=== PATIENT | male | born 1985 | race Caucasian/White ===

== ENCOUNTER 2019-05-13 16:22 | Emergency (ER) | payer MEDICAID ==
[~2019-05-13] VITALS: Ht 160 cm; Wt 77.1 kg
[2019-05-13 16:29] VITALS: BP_SYST 143
--- NOTE | 2019-05-13 21:06 | NUR ---
Patient to ER bed h1 to gown for evaluation. Side rails up.
--- NOTE | 2019-05-13 21:30 | NUR ---
Pt came to the ED for HX of 8 bilateral hand pain with numbnes and weakness. Reports he was handcuffed by police yesterday and it was "too tight and it felt like it was burning." Denies n/v/d or fever. No other complaints/injuries noted. Will cont. to monitor.
--- NOTE | 2019-05-13 22:30 | NUR ---
ER at bedside examining patient.
[2019-05-13 23:47] VITALS: BP_SYST 143
--- NOTE | 2019-05-13 23:47 | NUR ---
Patient given written and verbal discharge instructions and verbalizes understanding. ER MD Dr. Dejesus discussed with patient the results and treatment provided. Patient in stable condition. ID arm band removed. Rx of ibuprofen given. Patient educated on pain management and to follow up with PMD. Pain Scale 0/10. Opportunity for questions provided and answered. Medication side effect fact sheet provided.
== END 2019-05-13 23:47 | disposition home or self-care (01) ==
LOC: SED 16:22
DX: M25.531 Pain in right wrist (principal); M25.532 Pain in left wrist; R20.2 Paresthesia of skin
CPT/HCPCS: 99283

== ENCOUNTER 2023-10-30 12:43 | Emergency (ER) | payer MEDICAID ==
[~2023-10-30] VITALS: Ht 160 cm; Wt 81.6 kg
[2023-10-30 12:50] VITALS: BP_SYST 168; PULSE 69; RESP 18; TEMP 97.3; O2SAT 98
[2023-10-30 13:17] LABS: BILIRUBIN,URINE NEGATIVE (NEGATIVE); BLOOD, URINE NEGATIVE (NEGATIVE); CLARITY/URINE CLEAR (CLEAR); COLOR,URINE YELLOW (YELLOW); GLUCOSE,URINE NEGATIVE (NEGATIVE); KETONES,URINE NEGATIVE (NEGATIVE); LEUKOCYTE ESTERASE ,URINE NEGATIVE (NEGATIVE); NITRITE, URINE NEGATIVE (NEGATIVE); PROTEIN URINE NEGATIVE (NEGATIVE); UROBILINOGEN,URINE 0.2 (0.2-1.0)
[2023-10-30 13:27] LABS: BASOPHILS % (AUTO) 0.3 % (0.0-2.0); EOSINOPHILS # (AUTO) 0.1 K/uL (0.0-0.4); EOSINOPHILS % (AUTO) 1.3 % (0.0-4.0); HEMATOCRIT 44.7 % (36-54); LYMPHOCYTES # (AUTO) 2.6 K/uL (1.0-5.5); LYMPHOCYTES % (AUTO) 27.7 % (20.5-51.5); MEAN CORPUSCULAR HEMOGLOBIN 33 pg (27-31); MEAN CORPUSCULAR HGB CONC 36 % (32-36); MEAN CORPUSCULAR VOLUME 91 fL (79.0-98.0); MONOCYTES # (AUTO) 0.6 K/uL (0.0-1.0); MONOCYTES % (AUTO) 6.8 % (1.7-9.3); NEUTROPHILS % (AUTO) 63.9 % (40.0-70.0); PLATELET COUNT (AUTO) 223 K/uL (130-430); RED BLOOD CELL COUNT(AUTO) 4.93 MIL/uL (4.2-6.2); RED CELL DISTRIBUTION WIDTH 12.8 % (9.0-15.0); WHITE BLOOD COUNT (AUTO) 9.5 K/uL (4.8-10.8)
[2023-10-30 13:37] LABS: ALBUMIN 3.9 g/dL (3.4-4.8); BILIRUBIN,DIRECT 0.2 mg/dL (0.0-0.3); CALCIUM 8.9 mg/dL (8.4-11.0); CREATININE 0.82 mg/dL (0.55-1.30); POTASSIUM 3.7 mmol/L (3.5-5.1); TOTAL BILIRUBIN 0.7 mg/dL (0.0-1.0); TOTAL PROTEIN, SERUM 7.8 g/dL (6.4-8.3)
[2023-10-30] MEDS: MAG HYDROX/AL HYDROX/SIMETH 30 ML, DICYCLOMINE HCL 20 MG, LIDOCAINE VISCOUS 2% 15ML (PO... PO ONE (14:42)
[2023-10-30] MEDS: KETOROLAC TROMETHAMINE 30 MG VIAL IVP ONE (14:43)
[2023-10-30] MEDS ORDERED: OMEP40CA20 PO (14:55)
[2023-10-30] MEDS ORDERED: TRAM50TA2 PO (14:55)
[2023-10-30] MEDS ORDERED: ONDA-8 TL (14:55)
[2023-10-30 15:11] VITALS: BP_SYST 168; PULSE 69; RESP 18; TEMP 97.3; O2SAT 98
== END 2023-10-30 15:11 | disposition home or self-care (01) ==
LOC: SED 12:43
DX: K29.70 Gastritis, unspecified, without bleeding (principal); G89.29 Other chronic pain; M54.89 Other dorsalgia; Z79.899 Other long term (current) drug therapy
CPT/HCPCS: 99285; 74176; 96374; 80076; 80048; 81001; 83690; 85025; 36415; J1885; 81003; J2001